=== PATIENT | male | born 1985 | race Two or more races ===

== ENCOUNTER 2019-12-07 22:21 | Emergency (ER) | payer SELFPAY ==
[~2019-12-07] VITALS: Ht 175.3 cm; Wt 73.0 kg
[2019-12-07] MEDS ORDERED: LORAZEPAM 2MG/ML CPJ IV STA (22:56)
[2019-12-07] MEDS ORDERED: SODIUM CHLORIDE 0.9% 1,000 ML IV ONE ×2 (22:56→23:00)
[2019-12-07 23:35] LABS: BASOPHILS % 0.9 % (0.0-2.0); EOSINOPHILS % 1.2 % (0.0-5.0); HEMATOCRIT. 44.4 % (42.0-52.0); HEMOGLOBIN. 14.7 g/dL (14.0-18.0); LYMPHOCYTES % 44.8 % (20.0-50.0); MEAN CORPUSCULAR HEMOGLOBIN 28.6 pg (28.0-32.0); MEAN CORPUSCULAR VOLUME 86.2 fL (80.0-94.0); MEAN PLATELET VOLUME 8.4 fl (7.4-10.4); MONOCYTES % 9.4 % (2.0-8.0); NEUTROPHILS % 43.7 % (40.0-76.0); PLATELET 255 x1000/uL (130-400); RED BLOOD CELL COUNT 5.16 mill/uL (4.7-6.1); RED CELL DISTRIBUTION WIDTH 13.1 % (11.6-14.6)
[2019-12-07 23:42] LABS: CHLORIDE 106 mEq/L (98-107)
[2019-12-07 23:46] LABS: ETHANOL BLOOD < 10 mg/dL
[2019-12-07 23:51] LABS: CREATINE KINASE 335 IU/L (39-308)
[2019-12-08] LABS: CLARITY URINE CLEAR (CLEAR); COLOR URINE YELLOW (YELLOW); KETONES URINE TRACE (NEGATIVE); LEUKOCYTE ESTERASE URINE NEGATIVE (NEGATIVE); NITRITE URINE NEGATIVE (NEGATIVE); OCCULT BLOOD URINE NEGATIVE (NEGATIVE); PROTEIN URINE NEGATIVE (NEGATIVE); UROBILINOGEN URINE 0.2 E.U./dL (0.2-1.0)
[2019-12-08 00:18] LABS: *AMPHETAMINES SCREEN URINE NEGATIVE (NEGATIVE); *BARBITURATES SCREEN URINE NEGATIVE (NEGATIVE); *BENZODIAZEPINES SCREEN URINE NEGATIVE (NEGATIVE)
[2019-12-08 00:19] LABS: *COCAINE SCREEN URINE NEGATIVE (NEGATIVE); CANNABINOID URINE SCREEN PRESUMTIVE POSITIVE (NEGATIVE); METHADONE URINE SCREEN NEGATIVE (NEGATIVE); OPIATES URINE SCREEN NEGATIVE (NEGATIVE); PHENCYCLIDINE URINE SCREEN NEGATIVE (NEGATIVE)
[2019-12-08] MEDS ORDERED: POTASSIUM CHLORIDE 20MEQ TABLET SR PO ONE (00:45)
[2019-12-08] MEDS ORDERED: SODIUM CHLORIDE 0.9% 1,000 ML IV ONE (01:09)
[2019-12-08] MEDS ORDERED: LORAZEPAM 0.5MG TABLET PO ONE (01:15)
[2019-12-08 01:39] LABS: CREATINE KINASE 274 IU/L (39-308)
[2019-12-08 01:51] VITALS: BP 105/59
== END 2019-12-08 02:04 | disposition home or self-care (01) ==
LOC: ER 22:21
DX: T40.7X1A Poisoning by cannabis (derivatives), accidental (unintentional), initial encounter (principal); R07.89 Other chest pain; R00.0 Tachycardia, unspecified; R25.1 Tremor, unspecified; F12.988 Cannabis use, unspecified with other cannabis-induced disorder; Y92.89 Other specified places as the place of occurrence of the external cause
CPT/HCPCS: 36415; 71045; 80053; 80305; 80320; 81003; 82550; 84484; 85025; 93005; 96374; 99284; J2060; J7030; Z7610; G0480